=== PATIENT | female | born 1990 | race African-American/Black ===

== ENCOUNTER 2021-09-12 09:30 | Inpatient (IN) | payer OTHER ==
[2021-09-12 10:11] VITALS: BMI 40.5
[2021-09-12] MEDS ORDERED: Promethazine HCl 25 MG/ML VIAL IM PRN ×3 (10:11→16:09)
[2021-09-12] MEDS ORDERED: hydrALAZINE 20 MG/ML VIAL SLOW IVP PRN ×2 (10:11→16:09)
[2021-09-12] MEDS ORDERED: CEFAZOLIN 2 GM in Premix Bag 1 BAG IVPB SCH (10:11)
[2021-09-12] MEDS ORDERED: Famotidine/PF 20 mg/2ml Vial SLOW IVP PRN (10:11)
[2021-09-12] MEDS ORDERED: Lactated Ringer's 1,000 ML IV SCH (10:11)
[2021-09-12] MEDS ORDERED: Bicitra 30 ML UDCUP PO PRN (10:11)
[2021-09-12] MEDS ORDERED: Ondansetron PF 4 MG/2 ML Vial IVP PRN ×3 (10:11→16:09)
[2021-09-12 10:38] LABS: Hemoglobin 9.8 g/dL (12.0-15.5); Mean Corpuscular HGB CONC 31.9 g/dL (32.0-36.0); Mean Corpuscular Hemoglobin 28.4 pg (27.0-33.0); Mean Platelet Volume 9.4 fl (7.4-10.4); Platelet Count 280 10x3/uL (150-450); RBC Distribution Width 14.3 % (11.5-14.5); Red Blood Cell (RBC) Count 3.45 10x6/uL (3.90-5.03); White Blood Cell (WBC) Count 9.8 10x3/uL (3.5-10.5)
[2021-09-12 11:19] LABS: Hep B Surf Ag Non-Reactive S/CO (NonReactive); Syphilis Antibody Nonreactive (Nonreactive); Syphilis Antibody Index 0.06 S/CO (<1.00 Non-Reactive)
[2021-09-12 11:22] LABS: HBSAg Index 0.17 S/CO (0-0.99)
[2021-09-12] MEDS ORDERED: Gentamicin 130 MG, Admixture Fee 1 EACH in Sodium Chloride 0.9% 100 ML IVPB SCH (12:00)
[2021-09-12] MEDS ORDERED: Clindamycin/D5W 900 MG in Premix Bag 1 BAG IVPB SCH (12:00)
[2021-09-12] MEDS ORDERED: ePHEDrine Sulfate 50 MG/10 ML VIAL ONE (12:12)
[2021-09-12] MEDS ORDERED: Morphine PF 10 MG/10 ML VIAL ONE (12:12)
[2021-09-12] MEDS ORDERED: PHENYLEPHRINE-NS 100 MCG/ML 10 ML SYRINGE ONE (12:15)
[2021-09-12] MEDS ORDERED: Lidocaine 2% PF 100 mg/5 ml Syringe ONE (12:40)
[2021-09-12] MEDS ORDERED: Oxytocin 10 UNITS/ML VIAL ONE (12:41)
[2021-09-12] MEDS ORDERED: Naloxone HCl 0.4 mg/ml Vial IVP PRN ×2 (13:36)
[2021-09-12] MEDS ORDERED: diphenhydrAMINE 50 MG/ML VIAL IVP PRN (13:36)
[2021-09-12] MEDS ORDERED: Fentanyl 100 MCG/2 ML VIAL SLOW IVP PRN (13:36)
[2021-09-12] MEDS ORDERED: Ondansetron HCl/PF 4 MG/2 ML Vial IVP PRN (13:36)
[2021-09-12] MEDS ORDERED: Naloxone HCl 0.4 mg/ml Vial IV PRN (13:36)
[2021-09-12] MEDS ORDERED: Meperidine HCl/PF 25 MG/ML VIAL SLOW IVP PRN (13:36)
[2021-09-12] MEDS ORDERED: Hydrocerin (Eucerin) Cream 120 gm Jar TOP PRN (13:36)
[2021-09-12] MEDS ORDERED: Ketorolac Tromethamine 30 MG/ML VIAL IVP PRN (13:36)
[2021-09-12] MEDS ORDERED: Promethazine HCl 25 MG SUPP PR PRN (13:36)
[2021-09-12] MEDS ORDERED: Communication Order-Pharmacy FS SCH (13:45)
[2021-09-12] MEDS ORDERED: Ketorolac Tromethamine 30 MG/ML VIAL IVP SCH (13:45)
[2021-09-12] MEDS ORDERED: Meperidine HCl/PF 25 MG/ML VIAL ONE (14:02)
[2021-09-12] MEDS ORDERED: NS w/ Oxytocin 30 units 500 ML ONE (15:03)
[2021-09-12] MEDS ORDERED: Bisacodyl 10 MG SUPP PR PRN (16:09)
[2021-09-12] MEDS ORDERED: diphenhydrAMINE 25 MG CAP PO PRN (16:09)
[2021-09-12] MEDS ORDERED: Meperidine HCl/PF 25 MG/ML VIAL IM PRN (16:09)
[2021-09-12] MEDS ORDERED: NS w/ Oxytocin 30 units 500 ML IV SCH (16:09)
[2021-09-12] MEDS ORDERED: Boostrix 0.5 ML (Tdap) VIAL IM ONE (16:09)
[2021-09-12] MEDS: Ketorolac Tromethamine 30 MG/ML VIAL IVP SCH ×2 (17:29→23:24)
[2021-09-12] MEDS: Docusate Calcium (SURFAK) 240 MG CAP PO SCH (21:35)
[2021-09-12] MEDS: Ferrous Sulfate 325 MG TAB PO SCH (22:38)
[2021-09-13] MEDS ORDERED: Meperidine HCl/PF 25 MG/ML VIAL IM PRN (01:45)
[2021-09-13] MEDS: Ketorolac Tromethamine 30 MG/ML VIAL IVP SCH (06:00)
[2021-09-13 06:53] LABS: Hemoglobin 8.5 g/dL (12.0-15.5); Mean Corpuscular HGB CONC 32.2 g/dL (32.0-36.0); Mean Corpuscular Hemoglobin 28.5 pg (27.0-33.0); Mean Corpuscular Volume 88.6 fl (81.6-98.3); Mean Platelet Volume 9.9 fl (7.4-10.4); Platelet Count 233 10x3/uL (150-450); RBC Distribution Width 14.1 % (11.5-14.5); Red Blood Cell (RBC) Count 2.98 10x6/uL (3.90-5.03); White Blood Cell (WBC) Count 11.1 10x3/uL (3.5-10.5)
[2021-09-13] MEDS: HYDROcodone/Acetaminophen 5/325 mg Tablet PO PRN ×4 (08:40→19:10)
[2021-09-13] MEDS: Docusate Calcium (SURFAK) 240 MG CAP PO SCH ×2 (08:40→21:29)
[2021-09-13] MEDS: Ferrous Sulfate 325 MG TAB PO SCH ×2 (08:40→21:29)
[2021-09-13] MEDS: Ibuprofen 800 MG TAB PO SCH ×2 (13:13→21:29)
[2021-09-13] MEDS: Simethicone Chewable 80 MG TAB PO PRN (19:10)
[2021-09-14] MEDS: Ibuprofen 800 MG TAB PO SCH ×3 (05:21→22:16)
[2021-09-14] MEDS: Ferrous Sulfate 325 MG TAB PO SCH ×2 (08:22→21:02)
[2021-09-14] MEDS: HYDROcodone/Acetaminophen 5/325 mg Tablet PO PRN ×4 (08:22→21:01)
[2021-09-14] MEDS: Simethicone Chewable 80 MG TAB PO PRN ×3 (08:22→21:02)
[2021-09-14] MEDS: Docusate Calcium (SURFAK) 240 MG CAP PO SCH ×2 (08:22→21:02)
[2021-09-15] MEDS: HYDROcodone/Acetaminophen 5/325 mg Tablet PO PRN ×3 (02:58→15:08)
[2021-09-15] MEDS: Ibuprofen 800 MG TAB PO SCH ×2 (05:14→15:06)
[2021-09-15] MEDS: Docusate Calcium (SURFAK) 240 MG CAP PO SCH (07:45)
[2021-09-15] MEDS: Ferrous Sulfate 325 MG TAB PO SCH (07:45)
[2021-09-15] MEDS: Simethicone Chewable 80 MG TAB PO PRN ×2 (07:45→15:09)
[2021-09-15 07:46] VITALS: BP 117/69; TEMP 98
== END 2021-09-15 15:30 | disposition home or self-care (01) | DRG 788 ==
LOC: CSHLD 09:30 → CSHPED 15:58
PROVIDERS: ADMIT Family Medicine; ATTEND Family Medicine
PROC: 10D00Z1 Extraction of Products of Conception, Low, Open Approach (ICD-10-PCS; principal; 2021-09-12)
PROC: 10907ZC Drainage of Amniotic Fluid, Therapeutic from Products of Conception, Via Natural or Artificial Opening (ICD-10-PCS; 2021-09-12)
DX: O34.211 Maternal care for low transverse scar from previous cesarean delivery (principal); O99.02 Anemia complicating childbirth; D64.9 Anemia, unspecified; O99.52 Diseases of the respiratory system complicating childbirth; J45.909 Unspecified asthma, uncomplicated; O99.824 Streptococcus B carrier state complicating childbirth; Z3A.39 39 weeks gestation of pregnancy; Z37.0 Single live birth; Z88.0 Allergy status to penicillin
CPT/HCPCS: 51702; 85027; 86780; 86850; 86900; 86901; 87340; J1885; J2001; J2175; J2274; J2590; J3490; J7120